=== PATIENT | male | born 1995 | race Caucasian/White ===

== ENCOUNTER 2020-07-19 09:57 | Emergency (ER) | payer SELFPAY ==
[2020-07-19 10:01] VITALS: BP 121/75; PULSE 94; RESP 18; TEMP 36.9; O2SAT 96; BMI 28.1
--- NOTE | 2020-07-19 10:04 | ED_ITS ---
Documented by User: RYLEE Jurado 07/19/20 13:17 HPI - Extremity Injury (Upper) General: Chief Complaint: Extremity Injury, Upper Stated Complaint: right hand injury Time Seen by Provider: 07/19/20 10:00 Source: patient Mode of arrival: ambulatory Limitations: no limitations History of Present Illness: HPI narrative: Patient is a 24-year-old male who presents to ED today for evaluation of a right hand injury that he sustained approximately an hour ago after punching a wall. He has no other complaints other than right hand pain. No abrasions or lacerations noted. No previous injuries to his right hand. complaint: injury to: right and hand Onset (ago): hour(s) Other Extremity Injury: Right: hand Other injuries: none Handedness: right Place: home Severity: moderate Relieving factors: immobilization Exacerbating factors: movement of extremity Context: direct blow Associated symptoms: Reports no associated symptoms Treatments prior to arrival: cold therapy Review of Systems Musc: Reports: extremity pain (R hand) and extremity swelling (R hand) Neuro: Denies: numbness in extremities or sensory changes Physical Exam Const: COMMON NORMALS: no acute distress, average body habitus, patient oriented x3, no limitations, healthy appearing, alert and well nourished GENERAL APPEARANCE: cooperative Extremity: GENERAL: Yes normal exam except as noted OTHER: deformity and tenderness noted to R ulnar hand over 4-5 metacarpals; NV intact; pt can wiggle fingers but cannot make a fist Neuro: COMMON NORMALS: patient oriented x3 and no sensory deficits noted SENSORIUM/ORIENTATION: Yes alert Skin: TRAUMA: no lacerations or abrasions Course Consultations: Consultation #1: Dr. Dugan-reviewed patient's images and feels comfortable trying to manage that here; recommends reduction of CMC dislocation and send post-reduction films Sent Dr. Dugan post reduction films and he will see in clinic this week with plan for surgery. Recommends PCR COVID. Consultation #2: Dr. Izaguirre hand surgery-stated she could see patient today or tomorrow for surgery if our orthopedic provider did not feel comfortable treating. Vital Signs: Vital signs: Vital Signs Temperature 98.5 F 07/19/20 10:01 Pulse Rate 78 07/19/20 13:12 Respiratory Rate 15 07/19/20 13:12 Blood Pressure 128/78 07/19/20 13:12 Pulse Oximetry 99 07/19/20 13:12 MDM - Extremity Injury (Upper) MDM Narrative: Medical decision making narrative: Reduction performed with Dr. Ruano (please see his note for procedural sedation and reduction). Dr. Dugan was sent pre and post reduction films and feels comfortable managing this. Patient is splinted and CM is working on getting his ortho follow up appointment for this week. Imaging Data^: XR R hand post reduction: Radiologist's impression: [facility] [place] [address] XRay Report Signed Patient: Michael Paul Unit #: [id number] : 1995 Age/Sex: 24 / M ADM Date: 07/19/20 Loc: ER Room/Bed: Attending Dr: Ordering Provider/Ordering MD: Chirag Ruano DO Date of Service: 07/19/20 Procedure(s): XR hand RT min 3V* [id number] Accession Number(s): [id number] Report Number: [id number] PROCEDURE INFORMATION: Exam: XR Right Hand Exam date and time: 07/19/2020 11:45 AM Age: 24 years old Clinical indication: Screening exam; Post reduction; Additional info: Post reduction film TECHNIQUE: Imaging protocol: XR Right hand. Views: 3 or more views. COMPARISON: CR XR hand RT min 3V* [id number] 07/19/2020 10:03 AM FINDINGS: Bones/joints: Status post closed reduction of fractures involving the proximal 4th metacarpal and hamate with a residual displaced fracture dorsal to the carpus. Improved alignment of the carpometacarpal joint. Overlying cast obscures fine bony detail. Soft tissues: No radiopaque foreign body. XR/XR hand RT min 3V* [id number] IMPRESSION: Status post closed reduction of fractures involving the proximal 4th metacarpal and hamate with a residual displaced fracture dorsal to the carpus. Improved alignment of the 4th carpometacarpal joint. Dictated By: Elias Mattson MD Signed By: Elias Mattson MD Signed Date/Time: 07/19/20 1253 DD/ 1252 XR R hand: Radiologist's impression: [address] [address] XRay Report Signed Patient: Michael Paul Unit #: [id number] : 1995 Age/Sex: 24 / M ADM Date: 07/19/20 Loc: ER Room/Bed: Attending Dr: Ordering Provider/Ordering MD: Anjelica Metcalf Date of Service: 07/19/20 Procedure(s): XR hand RT min 3V* 47883 Accession Number(s): [id number] Report Number: [id number] PROCEDURE INFORMATION: Exam: XR Right Hand Exam date and time: 07/19/2020 10:17 AM Age: 24 years old Clinical indication: Injury or trauma; Other: Punched wall; Blunt trauma (contusions or hematomas); Hand; Right; Additional info: Injury; Punched wall TECHNIQUE: Imaging protocol: XR Right hand. Views: 3 or more views. COMPARISON: No relevant prior studies available. FINDINGS: Bones/joints: Acute displaced fracture involving the hamate with a major dorsally displaced fracture fragment. Additional linear ossific density about the proximal ulnar aspect of the 3rd metacarpal, also believed to be indicative of an acute fracture. Fracture dislocation of the proximal 4th metacarpal with dorsal displacement of the metacarpal on the lateral view. Soft tissues: No radiopaque foreign body. XR/XR hand RT min 3V* [id number] IMPRESSION: 1. Acute displaced fracture involving the hamate with a major dorsally displaced fracture fragment. 2. Additional linear ossific density about the proximal ulnar aspect of the 3rd metacarpal, also believed to be indicative of an acute fracture. 3. Fracture dislocation of the proximal 4th metacarpal with dorsal displacement of the metacarpal on the lateral view. Dictated By: Elias Mattson MD Signed By: Elias Mattson MD Signed Date/Time: 07/19/20 1048 DD/ 104 Discharge Plan Discharge Patient Disposition: Home Clinical Impression: Displaced fracture of hamate of right wrist Qualifiers: Encounter type: initial encounter Hamate bone location: unspecified portion of hamate Fracture type: closed Qualified Code(s): S62.141A - Displaced fracture of body of hamate [unciform] bone, right wrist, initial encounter for closed fracture Closed dislocation of fourth carpometacarpal joint of right hand Qualifiers: Encounter type: initial encounter Qualified Code(s): S63.054A - Dislocation of other carpometacarpal joint of right hand, initial encounter Fracture of third metacarpal bone of right hand Qualifiers: Encounter type: initial encounter Fracture type: closed Metacarpal location: base Fracture alignment: nondisplaced Qualified Code(s): S62.342A - Nondisplaced fracture of base of third metacarpal bone, right hand, initial encounter for closed fracture Condition: Stable Prescriptions: New hydrocodone-acetaminophen 5-325 mg tablet 1 tab PO Q6H PRN (Reason: pain) Qty: 14 RF: 0 No Action No Known Home Medications RF: 0 Discharge Orders: Discharge ED (Routine); Ordered 07/19/20 Ordered By: Anjelica Metcalf Referrals: Jese Dugan MD [Physician] - Patient Instructions: Hand Fracture (ED), Opioid Safety Activity Restrictions/Additional Instructions: [facility] is committed to fighting the nationwide opiate epidemic. We a re providing ALL patients with information regarding opiate safety. If you received opiate pain medication during your stay or if you received a prescription for opiate pain medication-please review this handout. If not, you may disregard. Thank you. As discussed case management should contact you to give you your appointment date and time to see Dr. Dugan this week for follow-up. Coding Level of Care Code ED Creative Developer for Chg Fwd Exam Expanded Problem Focused Documented by User: Chirag Ruano DO 07/19/20 14:11 HPI - Extremity Injury (Upper) General: Chief Complaint: Extremity Injury, Upper Stated Complaint: right hand injury Time Seen by Provider: 07/19/20 10:00 Procedures Orthopedic Joint Reduction Joint #1: Time Out Performed: Yes Side: right Joint Reduction Location: other (Fourth metacarpal joint) Analgesia: procedural sedation Technique used: direct manipulation Post-reduction neuro exam: intact Post-reduction vascular: intact Post Reduction X-Ray Obtained: Yes Post Reduction X-Ray Results: reduced Splint Applied: Yes Patient Tolerated Procedure: well Additional Comments: Follow-up today with Ortho Procedural Sedation Indication: fracture/dislocation reduction ASA Class: I Preparation: monitoring specialist applied, pulse oximeter, supplemental O2 applied, suction/airway equipment at bedside and IV secured IV Etomidate dose (mg): 10 Patient Tolerated Procedure: well and no complications Complications: none Course Vital Signs: Vital signs: Vital Signs Temperature 98.5 F 07/19/20 10:01 Pulse Rate 78 07/19/20 13:12 Respiratory Rate 15 07/19/20 13:12 Blood Pressure 128/78 07/19/20 13:12 Pulse Oximetry 99 07/19/20 13:12 MDM - Extremity Injury (Upper) MDM Narrative: Medical decision making narrative: Chart review along with x- rays. Conscious sedation and reduction by traction countertraction manipulation. Patient tolerated well postreduction film showed good reduction of dislocation splint applied referred to Ortho. Agree with assessment and plan by RYLEE Jurado. Discharge Plan Discharge Patient Disposition: Home Clinical Impression: Displaced fracture of hamate of right wrist Qualifiers: Encounter type: initial encounter Hamate bone location: unspecified portion of hamate Fracture type: closed Qualified Code(s): S62.141A - Displaced fracture of body of hamate [unciform] bone, right wrist, initial encounter for closed fracture Closed dislocation of fourth carpometacarpal joint of right hand Qualifiers: Encounter type: initial encounter Qualified Code(s): S63.054A - Dislocation of other carpometacarpal joint of right hand, initial encounter Fracture of third metacarpal bone of right hand Qualifiers: Encounter type: initial encounter Fracture type: closed Metacarpal location: base Fracture alignment: nondisplaced Qualified Code(s): S62.342A - Nondisplaced fracture of base of third metacarpal bone, right hand, initial encounter for closed fracture Condition: Stable Prescriptions: New hydrocodone-acetaminophen 5-325 mg tablet 1 tab PO Q6H PRN (Reason: pain) Qty: 14 RF: 0 No Action No Known Home Medications RF: 0 Discharge Orders: Discharge ED (Routine); Ordered 07/19/20 Ordered By: Anjelica Metcalf Referrals: Jese Dugan MD [Physician] - Patient Instructions: Hand Fracture (ED), Opioid Safety Activity Restrictions/Additional Instructions: [facility] is committed to fighting the nationwide opiate epidemic. We are providing ALL patients with information regarding opiate safety. If you received opiate pain medication during your stay or if you received a prescription for opiate pain medication-please review this handout. If not, you may disregard. Thank you. As discussed case management should contact you to give you your appointment date and time to see Dr. Dugan this week for follow-up. Coding Level of Care Code ED Creative Developer for Joss Fwd Exam Expanded Problem Focused
[2020-07-19 11:06] VITALS: BP 135/84; PULSE 91; RESP 22; O2SAT 98
--- NOTE | 2020-07-19 11:42 | XRR_ITS ---
PROCEDURE INFORMATION: Exam: XR Right Hand Exam date and time: 07/19/2020 11:45 AM Age: 24 years old Clinical indication: Screening exam; Post reduction; Additional info: Post reduction film TECHNIQUE: Imaging protocol: XR Right hand. Views: 3 or more views. COMPARISON: CR XR hand RT min 3V* [id number] 07/19/2020 10:03 AM FINDINGS: Bones/joints: Status post closed reduction of fractures involving the proximal 4th metacarpal and hamate with a residual displaced fracture dorsal to the carpus. Improved alignment of the carpometacarpal joint. Overlying cast obscures fine bony detail. Soft tissues: No radiopaque foreign body. XR/XR hand RT min 3V* [id number] IMPRESSION: Status post closed reduction of fractures involving the proximal 4th metacarpal and hamate with a residual displaced fracture dorsal to the carpus. Improved alignment of the 4th carpometacarpal joint.
[2020-07-19 12:02] VITALS: BP 127/90; PULSE 99; RESP 22; O2SAT 98
[2020-07-19 12:25] VITALS: PULSE 60
[2020-07-19 13:00] VITALS: BP 128/78; PULSE 78; RESP 15; O2SAT 99
[2020-07-19 13:12] VITALS: BP 128/78; PULSE 78; RESP 15; O2SAT 99
--- NOTE | 2020-07-19 14:13 | DCPLANNER ---
commercial lending relationship manager was asked to schedule a follow up appointment for patient with ortho. commercial lending relationship manager called the ortho clinic, spoke with Eugenia, gave clinic patients information. commercial lending relationship manager was told that patients information would be printed and reviewed. Clinic will call patient with appointment information.
--- NOTE | 2020-07-20 08:07 | DCPLANNER ---
Patient has a follow up appointment scheduled for Monday, July 20, 2020 at 11:[address] Dugan at [facility]. Clinic will call patient with appointment information.
[2020-07-20 15:23] LABS: Coronavirus Test Green County Not Detected
--- NOTE | 2020-08-03 13:19 | DCPLANNER ---
Patient had a follow up appointment scheduled for 07.20.[address] Dugan at [facility] - patient did attend appointment.
== END 2020-07-19 13:13 | disposition home or self-care (01) ==
PROVIDERS: Physician Assistant; Emergency Provider Family Medicine
DX: S62.141A Displaced fracture of body of hamate [unciform] bone, right wrist, initial encounter for closed fracture (principal); S63.054A Dislocation of other carpometacarpal joint of right hand, initial encounter; S62.342A Nondisplaced fracture of base of third metacarpal bone, right hand, initial encounter for closed fracture; W22.09XA Striking against other stationary object, initial encounter
CPT/HCPCS: 73130; 87635; 99284; J3490

== ENCOUNTER 2020-07-25 13:30 | Day surgery (SDC) | payer SELFPAY ==
[2020-07-22 13:38] VITALS: BMI 28.1
--- NOTE | 2020-07-25 | XR_ITS ---
WS: [id number] INTRAOPERATIVE TECHNIQUE: 3 Spot fluoroscopic images for intraoperative purposes. FLUOROSCOPY TIME: 30.8 seconds CLINICAL INFORMATION: OR PICS, ORIF COMPARISON: None. FINDINGS: Intraoperative changes plate and fixation involving the base of the fourth and fifth metacarpals exte nding into the distal carpal row at the hamate XR/XR hand RT 2V 54750 IMPRESSION: Images obtained for intraoperative purposes.
--- NOTE | 2020-07-25 | SCC_ITS ---
Procedure Done: Closed reduction and pinning fracture dislocation right ring finger metacarpal/hamate fracture 30.8 seconds of fluoroscopic guidance, for a cumulative dose of 0.39 mGy, was provided to Dr. Dugan by the radiology department. C-arm images of the RIGHT hand were saved for the patient's permanent record. [facility]
[2020-07-25 13:46] VITALS: BP 131/94; PULSE 96; RESP 17; TEMP 36.5; O2SAT 97
[2020-07-25] MEDS: sodium chloride 0.9% 1,000 ML 30 ML IV (14:02)
--- NOTE | 2020-07-25 14:08 | ANES.PREANE2 ---
Pre-Anesthetic Assessment Pre-Anesthetic Assessment: Height/Weight: Height 1.7 m Weight 81.647 kg Temp Pulse Resp BP Pulse Ox 97.7 F 96 17 131/94 97 07/25/20 13:46 07/25/20 13:46 07/25/20 13:46 07/25/20 13:46 07/25/20 13:46 Preop Diagnosis: Fracture Dislocation right ring finger metacarpal Proposed Procedure: Operation Date: 07/25/20 14:55 Proposed Procedures p Closed Reduction Percutaneous Pin right fourth Metacarpal vs ORIF Right fourth metacarpal 56294 [id number] S63.054A(Right) - Jese Dugan MD Was Beta Sybil taken within 24 hours: N/A Was Clonidine taken within 24 hours: N/A Last intake: Intake Last Liquid Date 07/24/20 Last Liquid Time 22:00 Last Solid Date 07/24/20 Last Solid Time 22:00 Social: Social History: Tobacco and No alcohol Exam: Pre-Anes Outpt Exam: alert, oriented x 3, clear to auscultation bilaterally and regular rate & rhythm Airway: Submandibular: WNL Cervical ROM: WNL MP: 2 Dentition: Full History/ROS: No significant history except as noted Anesthetic Plan: ASA status: 2 Anesthesia: General Risk of > 500 ml blood loss (7ml/kg in children): No Meds/Allergies Current Medications: Current Medications Generic Name Dose Route Start Last Admin Trade Name Freq PRN Reason Stop Dose Admin Sodium Chloride 1,000 mls @ 30 ml s/hr 07/25/20 13:45 07/25/20 14:02 Sodium Chloride 0.9% IV 07/26/20 13:44 30 mls/hr .Q24H ANDREW Administration Data Anesthesia Cardiac Studies: No Data to Display
--- NOTE | 2020-07-25 14:52 | W.PM.OPSUD ---
Surgery/Procedure H&P Update DATE OF PROCEDURE: July 25, 2020 DATE H&P PERFORMED: 07/20/20 PREOP DIAGNOSIS: Fracture Dislocation right ring finger metacarpal PLANNED PROCEDURE: Operation Date: 07/25/20 14:55 Proposed Procedures p Closed Reduction Percutaneous Pin right fourth Metacarpal vs ORIF Right fourth metacarpal 06744 48618 S63.054A(Right) - Jese Dugan MD
--- NOTE | 2020-07-25 15:36 | PM.OP ---
Operative Report Date of procedure: July 25, 2020 Pre-op Diagnosis: Fracture Dislocation right ring finger metacarpal Post-op diagnosis: same Post-op Findings: The patient had a fracture of his dorsal hamate with dorsal dislocation of the ring finger metacarpal Procedure Done: Closed reduction and pinning fracture dislocation right ring finger metacarpal/hamate fracture Implants: 3 K wires x0.062, 1 K wire x0.045 Pathology: none sent Surgeon: Jese Dugan Anesthesia: General Estimated blood loss (mL): 0 Complications: None Findings: The patient had a fracture of his dorsal hamate with a dorsal dislocation of the ring finger metacarpal Condition: stable Procedure: The patient was taken to the operating room and given a general anesthesia. His right upper extremity was prepped and draped in the usual fashion. A timeout was performed. With longitudinal traction on the ring finger the metacarpal could be reduced. Initially an 062 K wire was driven from the dorsal aspect of the distal hamate fragment into the proximal bone. A second oblique 062 K wire was driven from the ring finger metacarpal base into the proximal and more radial carpus. A third was passed from the fifth metatarsal base into the ring finger metacarpal base. An 045 K wire was driven across the proximal hamate fragment into the body of the hamate. Intraoperative images showed the metacarpal fracture and hamate fracture are reasonably reduced. Pins were covered with Jurgan's balls. The pin entry point where wrapped in a Xeroflo and a 4 x 4's. A ulnar gutter splint was applied.
[2020-07-25 15:40] VITALS: BP 132/82; PULSE 78; RESP 16; TEMP 36.2; O2SAT 99
[2020-07-25 15:45] VITALS: BP 136/90; PULSE 76; RESP 18; O2SAT 100
[2020-07-25 15:50] VITALS: BP 132/86; PULSE 70; RESP 16; TEMP 36.2; O2SAT 96
[2020-07-25 15:57] VITALS: BP 120/76; PULSE 68; RESP 18; TEMP 36.2; O2SAT 97
[2020-07-25] MEDS: HYDROcodone-acetaminophen 5-325 mg Tablet 1 TAB PO (16:12)
[2020-07-25 16:14] VITALS: BP 121/96; PULSE 68; RESP 18; TEMP 36.2; O2SAT 97
--- NOTE | 2020-07-25 16:27 | ANE.PACU2 ---
Inpatient post-anesthesia follow up: Airway intact: Yes Vital signs: Temperature 97.1 F Pulse Rate 68 Respiratory Rate 18 Blood Pressure 121/96 Pulse Oximetry 97 Oxygen Delivery Me thod Room Air Oxygen Flow Rate 6 Fraction of Inspir ed Oxygen Hydration adequate: Yes Nausea and vomiting: No Pain level: 2 Mental status: Baseline
== END 2020-07-25 16:35 | disposition home or self-care (01) ==
PROVIDERS: Visit Provider Orthopaedic Surgery
PROC: (CPT 26615; principal; 2020-07-25 14:45)
DX: S62.604A Fracture of unspecified phalanx of right ring finger, initial encounter for closed fracture (principal); W22.01XA Walked into wall, initial encounter
CPT/HCPCS: 26615; 73120; 76000; 96365; C1713; J0690; J1100; J2250; J2405; J2704; J3010; J7030

== ENCOUNTER → 2020-08-30 08:31 | Outpatient (BNVA) | payer SELFPAY | PROVIDERS: Visit Provider Orthopaedic Surgery | DX: Z48.89 Encounter for other specified surgical aftercare (principal); S62.304D Unspecified fracture of fourth metacarpal bone, right hand, subsequent encounter for fracture with routine healing; S62.306D Unspecified fracture of fifth metacarpal bone, right hand, subsequent encounter for fracture with routine healing; X58.XXXD Exposure to other specified factors, subsequent encounter | CPT/HCPCS: 73130 ==

== ENCOUNTER → 2020-09-26 13:15 | Outpatient (BNVA) | payer SELFPAY | PROVIDERS: Visit Provider Orthopaedic Surgery | DX: Z48.89 Encounter for other specified surgical aftercare (principal) | CPT/HCPCS: 73130 ==